=== PATIENT | female | born 1980 | race American Indian/Alaskan Native ===

== ENCOUNTER 2017-05-07 18:51 | Emergency (ER) | payer SELFPAY ==
[2017-05-07 18:57] VITALS: BP 123/66
[2017-05-07] MEDS ORDERED: MOTRIN PO ONE ×3 (19:25→19:46)
--- NOTE | 2017-05-07 20:26 | Emergency Department Report ---
Blank Doc - Documentation Documentation: Patient is a 37-year-old English female who is having low back pain for the approximate 1 week. Patient states it hurts to move. Patient denies any urinary symptoms nausea vomiting diarrhea vaginal bleeding that of discharge. Patient does state she had flulike symptoms with cough last week but states there is just a lingering cough now but of most flulike symptoms have persisted have gone. Patient will have a urinalysis done to rule out urinary tract issues
--- NOTE | 2017-05-07 20:33 | Emergency Department Report ---
ED Back Pain/Injury HPI - General Chief Complaint: Back Pain/Injury Stated Complaint: BACK PAIN/TOOTHPAIN Time Seen by Provider: 05/07/17 20:06 Source: patient Limitations: No Limitations - History of Present Illness Initial Comments: Patient is a 37-year-old Tristan[place] female who is having low back pain for the approximate 1 week. Patient states it hurts to move. Patient denies any urinary symptoms nausea vomiting diarrhea vaginal bleeding that of discharge. Patient does state she had flulike symptoms with cough last week but states there is just a lingering cough now but of most flulike symptoms have persisted have gone. Patient will have a urinalysis done to rule out urinary tract issues MD Complaint: back pain Onset/Timin -: week(s) Similar Symptoms Previously: Yes Place: home Radiation: none Severity: moderate Severity scale (0 -10): 4 Quality: aching Consistency: intermittent Improves With: other (rest) Worsens With: movement Context: unknown Associated Symptoms: denies: confusion, chest pain, numbness, difficulty walking , difficulty urinating, diaphoresis, incontinence, fever/chills, constipation, headaches, abdominal pain, loss of appetite, malaise, nausea/vomiting, rash, seizure, shortness of breath, syncope - Related Data Previous Rx's Medication Instructions Recorded Last Taken Type Cyclobenzaprine [Flexeril] 10 mg PO BID PRN #20 tablet 05/07/17 Unknown Rx Naproxen 500 mg PO BID PRN #30 tablet 05/07/17 Unknown Rx Allergies Allergy/AdvReac Type Severity Reaction Status Date / Time Penicillins Allergy Unknown Verified 05/07/17 18:57 ED Review of Systems ROS: Stated complaint: BACK PAIN/TOOTHPAIN Other details as noted in HPI Constitutional: denies: chills, fever Eyes: denies: eye pain, eye discharge, vision change ENT: denies: ear pain, throat pain Respiratory: denies: cough, shortness of breath, wheezing Cardiovascular: denies: chest pain, palpitations Endocrine: no symptoms reported Gastrointestinal: denies: abdominal pain, nausea, diarrhea Genitourinary: denies: urgency, dysuria, frequency, hematuria, discharge, abnormal menses, dyspareunia Musculoskeletal: back pain. denies: joint swelling, arthralgia, myalgia Skin: denies: rash, lesions Neurological: denies: headache, weakness, paresthesias Psychiatric: denies: anxiety, depression Hematological/Lymphatic: denies: easy bleeding, easy bruising ED Past Medical Hx - Past Medical History Previous Medical History?: No - Surgical History Additional Surgical History: breast cyst - Social History Smoking Status: Never Smoker Substance Use Type: Alcohol - Medications Home Medications: Home Medications Medication Instructions Recorded Confirmed Last Taken Type Cyclobenzaprine [Flexeril] 10 mg PO BID PRN #20 tablet 05/07/17 Unknown Rx Naproxen 500 mg PO BID PRN #30 tablet 05/07/17 Unknown Rx ED Physical Exam - General Limitations: No Limitations General appearance: alert, in no apparent distress - Head Head exam: Present: atraumatic, normocephalic - Eye Eye exam: Present: normal appearance - ENT ENT exam: Present: mucous membranes moist - Neck Neck exam: Present: normal inspection - Respiratory Respiratory exam: Present: normal lung sounds bilaterally. Absent: respiratory distress - Cardiovascular Cardiovascular Exam: Present: regular rate, normal rhythm. Absent: systolic murmur, diastolic murmur, rubs, gallop - GI/Abdominal GI/Abdominal exam: Present: soft, normal bowel sounds. Absent: distended, tenderness, guarding, rebound, rigid, organomegaly, bruit, pulsatile mass, hernia - Rectal Rectal exam: Present: deferred - Extremities Exam Extremities exam: Present: normal inspection, full ROM, normal capillary refill. Absent: tenderness, pedal edema, joint swelling, calf tenderness - Back Exam Back exam: Present: normal inspection, full ROM, muscle spasm. Absent: tenderness, CVA tenderness (R), CVA tenderness (L), paraspinal tenderness, vertebral tenderness, rash noted - Expanded Back Exam Expanded Back exam: Negative Straight Leg Raising: Left, Right - Neurological Exam Neurological exam: Present: alert, oriented X3, CN II-XII intact, normal gait. Absent: reflexes normal - Expanded Neurological Exam Expanded Patient oriented to: Present: person, place, time Speech: Present: fluid speech Cranial nerves: EOM's Intact: Normal, Gag Reflex: Normal, Tongue Deviation: Normal, Nystagmus: Normal Cerebellar function: Finger to Nose: Normal, Heel to Carrero: Normal, Romberg: Normal Upper motor neuron: Liam Neglect: Normal, Pronator Drift: Normal, Babinski Sign : Normal, Sensory Extinction: Normal Sensory exam: Upper Extremity Light Touch: Normal, Upper Extremity Pin Prick: Normal, Upper Extremity Temperature: Normal, UE 2 Point Discrimination: Normal, Lower Extremity Light Touch: Normal, Lower Extremity Pin Prick: Normal, Lower Extremity Temperature: Normal, LE 2 Point Discrimination: Normal Motor strength exam: RUE: 5, LUE: 5, RLE: 5, LLE: 5 DTR: bicep (R): 2+, bicep (L): 2+, tricep (R): 2+, tricep (L): 2+, knee (R): 2+ , knee (L): 2+, ankle (R): 2+, ankle (L): 2+ Best Eye Response ([place]): (4) open spontaneously Best Motor Response ([place]): (6) obeys commands Best Verbal Response ([place]): (5) oriented [place] Total: 15 - Psychiatric Psychiatric exam: Present: normal affect, normal mood - Skin Skin exam: Present: warm, dry, intact, normal color. Absent: rash ED Course Vital Signs 05/07/17 05/07/17 18:54 20:02 Temperature 98.1 F Pulse Rate 96 H Respiratory 18 18 Rate Blood Pressure 123/66 O2 Sat by Pulse 100 Oximetry ED Medical Decision Making - Lab Data Laboratory Tests 05/07/17 20:31 Urine Color Yellow Urine Turbidity Clear Urine pH 6.0 Ur Specific [place] 1.019 Urine Protein <15 mg/dl Urine Glucose (UA) Neg Urine Ketones Neg Urine Blood Lg Urine Nitrite Neg Urine Bilirubin Neg Urine Urobilinogen 4.0 Ur Leukocyte Esterase Neg Urine WBC (Auto) 3.0 Urine RBC (Auto) > 182.0 U Epithel Cells (Auto) 7.0 Urine Bacteria (Auto) 1+ Urine Mucus Few Urine HCG, Qual Negative - Medical Decision Making Patient is a 37-year-old Tristan[place] female who is having low back pain for the approximate 1 week. Patient states it hurts to move. Patient denies any urinary symptoms nausea vomiting diarrhea vaginal bleeding that of discharge. Patient does state she had flulike symptoms with cough last week but states there is just a lingering cough now but of most flulike symptoms have persisted have gone. Patient will have a urinalysis done to rule out urinary tract issues exam pt appears well nontoxic no fever no chills no abdominal pain pt with current menses ua: note normal for menses, back exam rom intact no restriction no deformity no swelling no ecchymosis no posterior vertebral point tenderness negative straight leg no numbness no tingling no paresthesia no loss or decrease in bowel or bladder function plan, nsaids muscle relaxants, moist heat therapy follow up with pcp in 2-3 days pt verbalized agreement and understanding of discharge plan. Critical care attestation.: If time is entered above; I have spent that time in minutes in the direct care of this critically ill patient, excluding procedure time. ED Disposition Clinical Impression: Low back strain Qualifiers: Encounter type: initial encounter Qualified Code(s): S39.012A - Strain of muscle, fascia and tendon of lower back, initial encounter Back pain Qualifiers: Back pain location: low back pain Chronicity: acute Back pain laterality: bilateral Sciatica presence: without sciatica Qualified Code(s): M54.5 - Low back pain Disposition: TO HOME OR SELFCARE Is pt being admited?: No Does the pt Need Aspirin: No Condition: Good Instructions: Muscle Strain (ED), Low Back Strain (ED), Core Strengthening Exercises (GEN) Prescriptions: Cyclobenzaprine [Flexeril] 10 mg PO BID PRN #20 tablet PRN Reason: Muscle Spasm Naproxen 500 mg PO BID PRN #30 tablet PRN Reason: Pain Referrals: NAA RICHARDS [Referring] - 3-5 Days Forms: Work/School Release Form(ED) Time of Disposition: 21:31
[2017-05-07 21:03] LABS: Bacteria,Urine 1+ /HPF (Negative); Bilirubin,Urine NEG (Negative); Blood,Urine LG (Negative); Color,Urine Yellow (Yellow); Mucus,Urine FEW /HPF; Protein,Urine <15 mg/dL mg/dL (Negative)
[2017-05-07 21:06] LABS: HCG Qualitative,Urine Negative (Negative); RBC,Urine > 182.0 /HPF (0.0-6.0)
== END 2017-05-07 21:37 | disposition home or self-care (01) ==
LOC: ED 18:51
DX: S39.012A Strain of muscle, fascia and tendon of lower back, initial encounter (principal); Z88.0 Allergy status to penicillin; X58.XXXA Exposure to other specified factors, initial encounter; Y93.89 Activity, other specified; Y92.89 Other specified places as the place of occurrence of the external cause; Y99.8 Other external cause status
CPT/HCPCS: 81001; 81025; 99283

== ENCOUNTER 2018-06-26 12:17 | Emergency (ER) | payer MEDICAID ==
[2018-06-26 12:49] VITALS: BP 125/69
[2018-06-26] MEDS ORDERED: TYLENOL PO ONE (12:50)
--- NOTE | 2018-06-26 12:50 | Emergency Department Report ---
Chief Complaint: Extremity Injury, Upper Stated Complaint: SWOLLEN FINGERS/WRIST PAIN Time Seen by Provider: 06/26/18 12:45 - HPI History of Present Illness: pt presents with left index and left hand edema and pain for 3-4 days has hx of trigger finger previously in the right hand her orthopedic is at [place] denies any fall, injury or trauma MSE screening note: Focused history and physical exam performed. Due to findings the following was ordered: XR left hand tylenol 650 mg given ED Disposition for MSE Condition: Stable
[2018-06-26] MEDS ORDERED: TYLENOL ONE (12:53)
--- NOTE | 2018-06-26 13:47 | XRay Report ---
PROCEDURE: XR HAND 3+V LT TECHNIQUE: Left hand, 3 views HISTORY: left index finger and left hand edema and pain COMPARISONS: None available FINDINGS: No acute fracture or dislocation. No focal osseous lesions. No radiopaque foreign body. IMPRESSION: No acute osseous abnormality is identified. This document is electronically signed by Genoveva Salgado MD., June 26 2018 01:45:43 PM ET
[2018-06-26] MEDS ORDERED: BACTRIM DS PO ONE (13:53)
[2018-06-26] MEDS ORDERED: DELTASONE PO ONE (13:53)
--- NOTE | 2018-06-26 13:58 | Emergency Department Report ---
Upper Extremity - HPI Chief Complaint: Extremity Injury, Upper Stated Complaint: SWOLLEN FINGERS/WRIST PAIN Time Seen by Provider: 06/26/18 12:45 Upper Extremity: Left Hand Occurred When: 1 Day Mechanism: Other (hx of trigger finger/thumb both hands, 10 years of typing in both hands) Symptoms: Yes Pain with Movement, Yes Deformity, Yes Limited Range of Movement, No Numbness, No Weakness, No Swelling, No Bruising/Ecchymosis, No Laceration or Abrasion ED Review of Systems ROS: Stated complaint: SWOLLEN FINGERS/WRIST PAIN Other details as noted in HPI Constitutional: denies: fever, malaise Respiratory: denies: cough Cardiovascular: denies: chest pain Musculoskeletal: denies: as per HPI Skin: change in color (redness) ED Past Medical Hx - Past Medical History Previous Medical History?: No - Surgical History Past Surgical History?: Yes Additional Surgical History: breast cyst - Social History Smoking Status: Never Smoker Substance Use Type: None - Medications Home Medications: Home Medications Medication Instructions Recorded Confirmed Last Taken Type Cyclobenzaprine [Flexeril] 10 mg PO BID PRN #20 tablet 05/07/17 Unknown Rx Naproxen 500 mg PO BID PRN #30 tablet 05/07/17 Unknown Rx Prednisone [predniSONE 10 mg 10 mg PO .TAPER #1 tab.ds.pk 06/26/18 Unknown Rx (6-Day Pack, 21 Tabs)] Sulfamethoxazole/Trimethoprim 1 each PO BID 7 Days #14 tablet 06/26/18 Unknown Rx [Bactrim DS TAB] Upper Extremity Exam - Exam General: Vital signs noted. No distress. Alert and acting appropriately. Head and Torso: No HEENT Abnormality Shoulder Exam: No Shoulder Tenderness, No Clavicle Tenderness, No Normal Range of Motion in Shoulder, No Shoulder Deformity, No AC Joint Tenderness Arm Exam: Yes Arm Deformity, No Arm/Humerus Tenderness Elbow: No Elbow Tenderness, No Normal Range of Motion in Elbow, No Elbow Deformity Forearm: No Forearm Tenderness, No Forearm Deformity, No Pain with Pronation Wrist: No Wrist Tenderness Hand: Yes Hand Tenderness, Yes Hand Deformity, Yes Digit Tenderness, Yes Digit(s) Deformity (boutionerre/swan deformity left index finger with nodular redness tenderness palmar surface just proximal to proximal flexor crease), No Normal ROM in Digit(s) ED Course Vital Signs 06/26/18 06/26/18 12:46 12:52 Temperature 98.7 F Pulse Rate 87 Respiratory 18 16 Rate Blood Pressure 125/69 O2 Sat by Pulse 99 Oximetry ED Medical Decision Making - Medical Decision Making finger tenderness with deformity suspect RA or other connective tissue disorder recurrent hand ailments, has been followed by [facility], given extensive PT rx: Prednisone taper, bactrim Critical care attestation.: If time is entered above; I have spent that time in minutes in the direct care of this critically ill patient, excluding procedure time. ED Disposition Clinical Impression: Hand arthritis Disposition: [id number]-01 TO HOME OR SELFCARE Is pt being admited?: No Does the pt Need Aspirin: No Condition: Stable Instructions: Rheumatoid Arthritis (ED), Trigger Finger (ED) Prescriptions: Sulfamethoxazole/Trimethoprim [Bactrim DS TAB] 1 each PO BID 7 Days #14 tablet Prednisone [predniSONE 10 mg (6-Day Pack, 21 Tabs)] 10 mg PO .TAPER #1 tab.ds.pk
== END 2018-06-26 14:38 | disposition home or self-care (01) ==
LOC: ED 12:17
DX: M13.842 Other specified arthritis, left hand (principal); Z88.0 Allergy status to penicillin
CPT/HCPCS: 73130; 99283; J7512